=== PATIENT | female | born 1955 | race Caucasian/White ===

== ENCOUNTER 2017-06-16 13:01 | Inpatient (IN) | payer MEDICARE, MEDICAID ==
[2017-06-16 14:19] VITALS: BMI 38.0
[2017-06-16] MEDS ORDERED: Calcium Carbonate 500 MG ChewTAB PO PRN (19:20)
[2017-06-16] MEDS ORDERED: Ondansetron ODT 4 MG TAB PO PRN (19:20)
[2017-06-16] MEDS ORDERED: Bisacodyl 5 MG TAB PO PRN (19:20)
[2017-06-16] MEDS ORDERED: Milk Of Magnesia 30 ML UDCUP PO PRN (19:20)
[2017-06-16] MEDS ORDERED: Loperamide HCl 2 MG CAP PO PRN (19:20)
[2017-06-16] MEDS: Ascorbic Acid 500 mg Chewable Tablet PO SCH (19:53)
[2017-06-16] MEDS: Atenolol 25 MG TAB PO SCH (19:53)
[2017-06-16] MEDS: Escitalopram Oxalate 10 mg Tablet PO SCH (19:54)
[2017-06-16] MEDS: Atorvastatin Calcium 10 MG TAB PO SCH (19:54)
[2017-06-16] MEDS: Mirtazapine 30 MG TAB PO SCH (19:54)
[2017-06-16] MEDS: Multivitamin W/ Minerals 1 TAB PO SCH (19:55)
[2017-06-16] MEDS: Acetaminophen 325 MG TAB PO PRN (19:55)
[2017-06-16] MEDS: OLANZapine 5 MG TAB PO SCH (19:55)
[2017-06-16] MEDS ORDERED: ALPRAZolam 0.25 MG TAB PO SCH (20:00)
[2017-06-16] MEDS: VITAMIN B COMPLEX PO SCH (21:29)
[2017-06-16] MEDS: ALPRAZolam 0.25 MG TAB PO SCH (21:29)
[2017-06-16] MEDS: HYDROcodone/Acetaminophen 10/325 mg Tablet PO PRN (21:30)
[2017-06-16] MEDS ORDERED: Bisacodyl 10 MG SUPP PR PRN (23:22)
[2017-06-17] MEDS: Levothyroxine Sodium 88 MCG TAB PO SCH (05:25)
[2017-06-17 05:36] LABS: Band 2 % (5-11); Eosinophils 1 % (0-10); Hemoglobin 10.8 g/dL (12.0-16.0); Lymphocytes 35 % (21-51); MDiff Complete? YES; Mean Corpuscular HGB CONC 33.5 g/dL (32.0-36.0); Mean Corpuscular Hemoglobin 31.6 pg (27.0-31.0); Mean Corpuscular Volume 94.4 fl (81.0-99.0); Monocytes 16 % (0-10); Neutrophil 45 % (42-75); Platelet Count 175 thou/uL (130-400); RBC Distribution Width 12.1 % (11.5-14.5); Reactive Lymphocytes 1 % (0-10); White Blood Cell (WBC) Count 4.3 thou/uL (4.8-10.8)
[2017-06-17 05:42] LABS: Anion Gap 12 mmol/L (10-20); BUN (Urea Nitrogen) 11 mg/dL (9.8-20.1); Calc. Creatinine Clearance 110 mL/min (70-130); Calcium 8.4 mg/dL (7.8-10.44); Carbon Dioxide 29 mmol/L (23-31); Chloride 104 mmol/L (98-107); Estimated GFR-MDRD 73; Glucose 96 mg/dL (80-115); Potassium 3.8 mmol/L (3.5-5.1); Sodium 141 mmol/L (136-145)
[2017-06-17] MEDS ORDERED: ALPRAZolam 0.25 MG TAB ONE (07:24)
[2017-06-17] MEDS: ALPRAZolam 0.25 MG TAB PO SCH ×3 (07:27→20:08)
[2017-06-17] MEDS: Calcium Carbonate + Vit D 1 TAB PO SCH (08:11)
[2017-06-17] MEDS: OLANZapine 5 MG TAB PO SCH ×2 (08:12→20:09)
[2017-06-17] MEDS: HYDROcodone/Acetaminophen 10/325 mg Tablet PO PRN (08:53)
[2017-06-17] MEDS: Ascorbic Acid 500 mg Chewable Tablet PO SCH (20:09)
[2017-06-17] MEDS: Atorvastatin Calcium 10 MG TAB PO SCH (20:09)
[2017-06-17] MEDS: Atenolol 25 MG TAB PO SCH (20:09)
[2017-06-17] MEDS: Escitalopram Oxalate 10 mg Tablet PO SCH (20:10)
[2017-06-17] MEDS: Mirtazapine 30 MG TAB PO SCH (20:10)
[2017-06-17] MEDS: Multivitamin W/ Minerals 1 TAB PO SCH (20:10)
[2017-06-17] MEDS: VITAMIN B COMPLEX PO SCH (20:11)
[2017-06-17] MEDS: Acetaminophen 325 MG TAB PO PRN (20:16)
[2017-06-18] MEDS: Levothyroxine Sodium 88 MCG TAB PO SCH (05:33)
[2017-06-18] MEDS: ALPRAZolam 0.25 MG TAB PO SCH ×3 (07:29→20:26)
[2017-06-18] MEDS: Calcium Carbonate + Vit D 1 TAB PO SCH (08:16)
[2017-06-18] MEDS: Acetaminophen 325 MG TAB PO PRN ×2 (08:16→15:22)
[2017-06-18] MEDS: OLANZapine 5 MG TAB PO SCH ×2 (08:16→20:27)
--- NOTE | 2017-06-18 12:13 | PRG ---
DATE OF ADMISSION: 06/16/2017 DATE OF PROGRESS NOTE: 06/17/2017 HISTORY OF PRESENT ILLNESS: Ms. Rich is a very pleasant 62-year-old white female who was taken by Dr. Francis to surgery for total left knee arthroplasty. Postoperatively, she did very well and has b een transferred to [facility] for continued physical therapy and occupational therap y to increase her strength and stamina. SUBJECTIVE: The patient states she is doing well today. She was very pleased because she did walk quite a bit. She understands that there is no therapy this weekend, but she will do exercises and h ave the nurses work with her. OBJECTIVE: VITAL SIGNS: Reveal blood pressure this morning was 107/75, pulse 75 to 88, respirations 18, O2 sat uration 98%, T-max is 98.4. Weight this morning was 208 pounds. GENERAL: This is a well-developed, well-nourished, slightly obese white female in no apparent distr ess at this time. HEENT: Reveals normocephalic, nontraumatic cranium. Pupils are equally round and reactive. Extrao cular movements intact. Nose and throat are slightly dry. NECK: Supple, without masses, nodes or bruits. CHEST: Clear to auscultation. No rales, rhonchi or wheezes are heard. HEART: Reveals a regular rate and rhythm with a 1/6 systolic ejection murmur. ABDOMEN: Obese, soft, nontender, without organomegaly, normal bowel sounds are noted. No rebound o r guarding is noted. : Deferred. EXTREMITIES: Reveal no clubbing, cyanosis or edema. The patient's left knee continues to do well, not much swelling, not much ecchymosis or tenderness. ASSESSMENT: 1. Status post total left knee. 2. Hypothyroidism. 3. Hypertension. 4. Anxiety depressive disorder. 5. Gastroesophageal reflux. PLAN: 1. Continue physical therapy and occupational therapy. 2. Continue to monitor the patient's blood pressure closely. 3. Continue to monitor the patient for GERD. 4. Continue stress ulcer prophylaxis. 5. Continue decubitus precautions. 6. Continue deep venous thrombosis prophylaxis.
[2017-06-18] MEDS: Escitalopram Oxalate 10 mg Tablet PO SCH (20:26)
[2017-06-18] MEDS: Multivitamin W/ Minerals 1 TAB PO SCH (20:26)
[2017-06-18] MEDS: HYDROcodone/Acetaminophen 10/325 mg Tablet PO PRN (20:26)
[2017-06-18] MEDS: Mirtazapine 30 MG TAB PO SCH (20:27)
[2017-06-18] MEDS: VITAMIN B COMPLEX PO SCH (20:27)
[2017-06-18] MEDS: Atenolol 25 MG TAB PO SCH (20:27)
[2017-06-18] MEDS: Ascorbic Acid 500 mg Chewable Tablet PO SCH (20:27)
[2017-06-18] MEDS: Atorvastatin Calcium 10 MG TAB PO SCH (20:27)
--- NOTE | 2017-06-18 21:52 | PRG ---
DATE OF SERVICE: 06/18/2017 SUBJECTIVE: Ms. Rich is a 62-year-old very pleasant white female taken to the surgical suite by Bassem Francis for total left knee arthroplasty. Postoperatively, she did very well, but she has significa nt problems with weakness and pain. She was transferred here for physical therapy and occupational therapy to increase her strength and stamina. The patient states she is doing well. She even was up and walking a little bit with the nurse today . She states her pain is much better. Her swelling is much better. She has no sticking pains in it anymore and she is very excited about so far the outcome. OBJECTIVE: VITAL SIGNS: Reveal blood pressure this morning 123/67, pulse 67 to 87, respirations 18 to 20, O2 saturation 98%, T-max is 97.6. Weight is 208 pounds. Input and output is good. The patient had a bowel movement today. GENERAL: Reveals a well-developed, well-nourished, slightly obese white female who looks much young er than her stated age. HEENT: Reveals normocephalic, nontraumatic cranium. Pupils are equally round and reactive. Extrao cular movements intact. Nose and throat are slightly dry. NECK: Supple, without masses, nodes, or bruits. CHEST: Clear to auscultation. No rales, rhonchi, or wheezes are heard. CARDIOVASCULAR: Reveals a regular rate and rhythm with a 1/6 systolic ejection murmur. ABDOMEN: Obese, soft, nontender, without organomegaly, normal bowel sounds are noted. No rebound o r guarding is noted. GENITOURINARY: Deferred. EXTREMITIES: Reveal no clubbing, cyanosis, or edema. The patient's left knee continues to do very well. ASSESSMENT: 1. Status post total left knee. 2. Hypothyroidism. 3. Hypertension. 4. Anxiety and depressive disorder. 5. Gastroesophageal reflux. PLAN: 1. Continue to monitor the patient's blood pressure closely. 2. Monitor the patient for GERD. 3. Continue stress ulcer prophylaxis. 4. Continue decubitus precautions. 5. Continue deep venous thrombosis prophylaxis. 6. Continue physical therapy and occupational therapy.
[2017-06-19] MEDS: Levothyroxine Sodium 88 MCG TAB PO SCH (05:46)
[2017-06-19] MEDS: ALPRAZolam 0.25 MG TAB PO SCH ×3 (07:20→20:46)
[2017-06-19] MEDS: Calcium Carbonate + Vit D 1 TAB PO SCH (08:24)
[2017-06-19] MEDS: OLANZapine 5 MG TAB PO SCH ×2 (08:24→20:45)
[2017-06-19] MEDS: Acetaminophen 325 MG TAB PO PRN (08:24)
[2017-06-19] MEDS: VITAMIN B COMPLEX PO SCH (20:44)
[2017-06-19] MEDS: Escitalopram Oxalate 10 mg Tablet PO SCH (20:45)
[2017-06-19] MEDS: Atenolol 25 MG TAB PO SCH (20:45)
[2017-06-19] MEDS: Multivitamin W/ Minerals 1 TAB PO SCH (20:45)
[2017-06-19] MEDS: Mirtazapine 30 MG TAB PO SCH (20:46)
[2017-06-19] MEDS: Atorvastatin Calcium 10 MG TAB PO SCH (20:46)
[2017-06-19] MEDS: Ascorbic Acid 500 mg Chewable Tablet PO SCH (20:46)
[2017-06-19] MEDS: HYDROcodone/Acetaminophen 10/325 mg Tablet PO PRN (20:46)
[2017-06-19] MEDS ORDERED: B COMPLEX SL SCH (22:15)
--- NOTE | 2017-06-20 01:57 | PRG ---
DATE OF SERVICE: 06/19/2017 HISTORY OF PRESENT ILLNESS: Ms. Rich is a very pleasant 62-year-old white female that Dr. Kim took to the surgical suite, did a total left knee arthroplasty. Postoperatively, she was weak, but she needed some physical therapy. So, therefore, she was transferred to swing bed. She is actually doing very well today. She got up to walk with the nurse today couple of rounds. Her swelling is m uch better. Her pain is much less. PHYSICAL EXAMINATION: VITAL SIGNS: Reveals blood pressure 129/90, pulse 72-83, respirations 18, O2 sat 97-98%. T-max is 98.0, weight is 208 pounds. GENERAL: Reveals well-developed, well-nourished, slightly obese white female in no apparent distres s at this time. HEENT: Reveals normocephalic, nontraumatic cranium. Pupils equal, round, and reactive. Extraocula r movements are intact. Nose and throat are slightly dry. NECK: Supple without masses, nodes or bruits. CHEST: Clear to auscultation. No rales, rhonchi, wheezes or cough is heard. CARDIOVASCULAR: Reveals a regular rate and rhythm with 1/6 systolic ejection murmur. ABDOMEN: Obese, soft, nontender, without organomegaly. Normal bowel sounds are noted. No rebound or guarding is noted. GENITOURINARY: Deferred. EXTREMITIES: Reveal no clubbing, cyanosis, or edema. Patient has a little bruising about her left knee, but continues to do very well, is not very warm, red or inflamed. ASSESSMENT: 1. Status post left total knee. 2. Hypothyroidism. 3. Hypertension. 4. Anxiety depressive disorder. 5. Gastroesophageal reflux disease. 6. Generalized weakness. PLAN: 1. Monitor the patient's blood pressure closely. 2. Monitor the patient for GERD. 3. Continue stress ulcer prophylaxis. 4. Continue decubitus precautions. 5. Continue deep venous thrombosis prophylaxis. 6. Continue physical therapy and occupational therapy.
[2017-06-20] MEDS: Levothyroxine Sodium 88 MCG TAB PO SCH (07:36)
[2017-06-20] MEDS: ALPRAZolam 0.25 MG TAB PO SCH ×3 (07:38→19:44)
[2017-06-20] MEDS: OLANZapine 5 MG TAB PO SCH ×2 (09:12→19:46)
[2017-06-20] MEDS: Calcium Carbonate + Vit D 1 TAB PO SCH (09:12)
[2017-06-20] MEDS: HYDROcodone/Acetaminophen 10/325 mg Tablet PO PRN ×2 (09:12→17:26)
[2017-06-20] MEDS: Ascorbic Acid 500 mg Chewable Tablet PO SCH (19:44)
[2017-06-20] MEDS: Atorvastatin Calcium 10 MG TAB PO SCH (19:45)
[2017-06-20] MEDS: Atenolol 25 MG TAB PO SCH (19:45)
[2017-06-20] MEDS: Escitalopram Oxalate 10 mg Tablet PO SCH (19:45)
[2017-06-20] MEDS: Mirtazapine 30 MG TAB PO SCH (19:46)
[2017-06-20] MEDS: Multivitamin W/ Minerals 1 TAB PO SCH (19:46)
[2017-06-20] MEDS: B COMPLEX SL SCH (19:47)
--- NOTE | 2017-06-21 00:05 | PRG ---
DATE OF ADMISSION: 06/16/2017 DATE OF PROGRESS NOTE: 06/20/2017 HISTORY OF PRESENT ILLNESS: Ms. Rich is a very pleasant 62-year-old white female. Dr. Francis took to the surgical suite for total left knee arthroplasty. Postoperatively, she was weak and she was t ransferred to [facility] for continued physical therapy and occupational therapy. SUBJECTIVE: The patient was seen walking in the halls with physical therapy today. She is much imp roved, however, last Tuesday when I saw her just barely get up. She states her swelling is much less and her pain is much less. She is excited that she is doing so well. PHYSICAL EXAMINATION: VITAL SIGNS: Reveal blood pressure 124/71, pulse 83, respirations 18, O2 saturation 96% to 98% on r oom air, temperature max of 98.0. GENERAL: This is a well-developed, well-nourished, slightly obese white female in no apparent distr ess at this time. HEENT: Reveals normocephalic, nontraumatic cranium. Pupils are equally round and reactive. Extrao cular movements intact. Nose and throat are moist today. NECK: Supple, without masses, nodes or bruits. LUNGS: Chest is clear to auscultation. No rales, rhonchi or wheezes are heard. HEART: Reveals a regular rate and rhythm. She does have a 1/6 systolic ejection murmur. ABDOMEN: Obese, soft, nontender, without organomegaly. No rebound or guarding is noted. Normal tim wel sounds are heard in all 4 quadrants. : Deferred. EXTREMITIES: Reveal no clubbing or cyanosis. The patient has trace edema in her legs. She has holli y little bruising and is walking cautiously. IMPRESSION: 1. Status post total left knee replacement. 2. Hypothyroidism. 3. Hypertension. 4. Gastroesophageal reflux disease. 5. Anxiety depressive disorder. 6. Generalized weakness. PLAN: 1. Continue to follow the patient's blood pressure closely. 2. Monitor the patient for GERD. 3. Continue stress ulcer prophylaxis. 4. Continue decubitus precautions. 5. Continue DVT prophylaxis. 6. Continue physical therapy and occupational therapy.
[2017-06-21] MEDS: Levothyroxine Sodium 88 MCG TAB PO SCH (05:58)
[2017-06-21] MEDS: ALPRAZolam 0.25 MG TAB PO SCH ×2 (07:45→12:39)
[2017-06-21] MEDS: OLANZapine 5 MG TAB PO SCH ×2 (09:22→19:50)
[2017-06-21] MEDS: Calcium Carbonate + Vit D 1 TAB PO SCH (09:22)
[2017-06-21] MEDS: Atenolol 25 MG TAB PO SCH (19:49)
[2017-06-21] MEDS: Ascorbic Acid 500 mg Chewable Tablet PO SCH (19:49)
[2017-06-21] MEDS: Escitalopram Oxalate 10 mg Tablet PO SCH (19:49)
[2017-06-21] MEDS: Atorvastatin Calcium 10 MG TAB PO SCH (19:49)
[2017-06-21] MEDS: Mirtazapine 30 MG TAB PO SCH (19:49)
[2017-06-21] MEDS: Multivitamin W/ Minerals 1 TAB PO SCH (19:50)
[2017-06-21] MEDS: B COMPLEX SL SCH (19:51)
[2017-06-21] MEDS ORDERED: ALPRAZolam 0.25 MG TAB PO SCH (20:00)
[2017-06-22] MEDS: Levothyroxine Sodium 88 MCG TAB PO SCH (05:48)
--- NOTE | 2017-06-22 05:54 | PRG ---
DATE OF SERVICE: 06/21/2017 DATE OF ADMISSION: 06/16/2017 HISTORY OF PRESENT ILLNESS: Ms. Rich is a very pleasant 62-year-old white female from [place], [place]. The patient had a total left knee done by Dr. Francis. Postoperatively, she was weak and had a lot of pain and some swelling in that knee. She was transferred to [facility] for swing bed for physical therapy and occupational therapy and is actually doing excellent. SUBJECTIVE: The patient is up and around. She is walking in the halls. She has much less swelling . She has much less pain and she has proud that she is doing so well. PHYSICAL EXAMINATION: VITAL SIGNS: Reveal blood pressure 111/75, pulse 86-88, respirations 20, O2 sat 96%-97%, T-max 98. 3, weight 208 pounds. GENERAL: Reveals well-developed, well-nourished, slightly obese white female in no apparent distres s at this time. HEENT: Reveals normocephalic, nontraumatic cranium. Pupils are equally round and reactive. Extrao cular muscle movements intact. Nose and throat are dry today. NECK: Supple without masses, nodes, or bruits. LUNGS: Chest clear to auscultation. No rales, rhonchi, or wheezes are heard. No cough is noted. HEART: Reveals a regular rate and rhythm without murmurs, gallops, or rubs. The patient does have a 1/6 systolic ejection murmur. ABDOMEN: Obese, soft, nontender without organomegaly. Normal bowel sounds are noted. No rebound o r guarding is noted. : Deferred. EXTREMITIES: Reveal no clubbing or cyanosis. Patient has trace edema to her legs. Patient has carolyn ost bruising and much less pain. IMPRESSION: 1. Status post total left knee replacement. 2. Hypothyroidism. 3. Hypertension. 4. Gastroesophageal reflux disease. 5. Anxiety depressive disorder. 6. Generalized weakness. PLAN: 1. Monitor the patient's blood pressure closely. 2. Monitor the patient for GERD. 3. Continue stress ulcer prophylaxis. 4. Continue decubitus precautions. 5. Deep venous thrombosis prophylaxis. 6. Continue physical therapy and occupational therapy.
[2017-06-22] MEDS: ALPRAZolam 0.25 MG TAB PO SCH ×3 (07:26→19:32)
[2017-06-22] MEDS: Calcium Carbonate + Vit D 1 TAB PO SCH (08:07)
[2017-06-22] MEDS: OLANZapine 5 MG TAB PO SCH ×2 (08:07→19:34)
--- NOTE | 2017-06-22 18:18 | PRG ---
DATE OF SERVICE: 06/22/2017 Ms. Rich is a very pleasant 62-year-old white female from [place], [place]. She had a total left knee done by Dr. Francis. Postoperatively, she was transferred to [facility] for cristhian nued physical therapy, and occupational therapy. The patient has actually been doing very well. SUBJECTIVE: The patient states she is up and walking much better. She has much less swelling. She has much less pain and she is proud she is doing so well. PHYSICAL EXAMINATION: VITAL SIGNS: Reveals blood pressure this morning 133/95, pulse 88, respirations 18 to 20, O2 sat 95 -97% on room air, temperature max 98.3. PHYSICAL EXAMINATION: GENERAL: This is a well-developed, well-nourished, slightly obese white female in no apparent distr ess at this time. HEENT: Reveals normocephalic, nontraumatic cranium. Pupils are equally round and reactive. Extrao cular movements intact. Nose is slightly dry. NECK: Supple, without masses, nodes or bruits. LUNGS: Chest is clear to auscultation. No rales, rhonchi, wheezes or cough is heard. CARDIOVASCULAR: Reveals a regular rate and rhythm. The patient does have a systolic murmur graded at I/. ABDOMEN: Obese, soft, nontender, without organomegaly. Normal bowel sounds are noted. No rebound or guarding is noted. Bowel sounds are noted in all 4 quadrants. : Deferred. EXTREMITIES: Reveal no clubbing, cyanosis or edema. Patient has slight swelling in her left leg, r ight is doing well. The bruising is almost all gone. IMPRESSION: 1. Status post total left knee replacement. 2. Hypothyroidism. 3. Hypertension. 4. Gastroesophageal reflux disease. 5. Anxiety, depressive disorder. 6. Generalized weakness. PLAN: 1. Continue to monitor the patient's blood pressure closely. 2. Continue stress ulcer prophylaxis. 3. Continue decubitus precautions. 4. Continue physical therapy. 5. Continue occupational therapy. 6. Continue to monitor the patient for GERD.
[2017-06-22] MEDS: Atenolol 25 MG TAB PO SCH (19:33)
[2017-06-22] MEDS: Ascorbic Acid 500 mg Chewable Tablet PO SCH (19:33)
[2017-06-22] MEDS: Mirtazapine 30 MG TAB PO SCH (19:33)
[2017-06-22] MEDS: Escitalopram Oxalate 10 mg Tablet PO SCH (19:33)
[2017-06-22] MEDS: Atorvastatin Calcium 10 MG TAB PO SCH (19:33)
[2017-06-22] MEDS: B COMPLEX SL SCH (19:34)
[2017-06-22] MEDS: Multivitamin W/ Minerals 1 TAB PO SCH (19:34)
[2017-06-22] MEDS: Acetaminophen 325 MG TAB PO PRN (20:25)
[2017-06-23] MEDS: Levothyroxine Sodium 88 MCG TAB PO SCH (06:12)
[2017-06-23] MEDS: ALPRAZolam 0.25 MG TAB PO SCH ×3 (07:29→20:38)
[2017-06-23] MEDS: OLANZapine 5 MG TAB PO SCH ×2 (08:28→20:37)
[2017-06-23] MEDS: Calcium Carbonate + Vit D 1 TAB PO SCH (08:28)
[2017-06-23] MEDS: B COMPLEX SL SCH (20:37)
[2017-06-23] MEDS: Mirtazapine 30 MG TAB PO SCH (20:37)
[2017-06-23] MEDS: Atorvastatin Calcium 10 MG TAB PO SCH (20:38)
[2017-06-23] MEDS: Ascorbic Acid 500 mg Chewable Tablet PO SCH (20:38)
[2017-06-23] MEDS: Escitalopram Oxalate 10 mg Tablet PO SCH (20:38)
[2017-06-23] MEDS: Atenolol 25 MG TAB PO SCH (20:38)
[2017-06-23] MEDS: Multivitamin W/ Minerals 1 TAB PO SCH (20:38)
[2017-06-23] MEDS: Acetaminophen 325 MG TAB PO PRN (20:39)
[2017-06-24] MEDS: Levothyroxine Sodium 88 MCG TAB PO SCH (05:32)
--- NOTE | 2017-06-24 06:00 | PRG ---
DATE OF ADMISSION: 06/16/2017 DATE OF SERVICE: 06/23/2017 HISTORY OF PRESENT ILLNESS: Ms. Rich is a very pleasant 62-year-old white female. She is from [place], [place] and had a total left knee done by Dr. Francis. Postoperatively, she was transferred to [facility] for continued physical therapy and occupational therapy because of weakne ss. She is expected to increase her strength and her stamina. SUBJECTIVE: The patient is again very pleased today, she is walking much better. She is having muc h less pain. She presently walks quite a bit this morning and now has the ice pack on her knee to t he keep the swelling down. She has no complaints and states she is eating well. OBJECTIVE: VITAL SIGNS: Blood pressure 124/71, pulse 85 to 105, respirations 18, O2 saturation 95% to 98% on r oom air, temperature 98.5. GENERAL: This is a well-developed, well-nourished, very pleasant, slightly obese white female, in n o apparent distress at this time. HEENT: Reveals normocephalic, nontraumatic cranium. Pupils are equally round and reactive. Extrao cular movements intact. Nose and throat are slightly dry. NECK: Supple, without masses, nodes, or bruits. CHEST: Clear to auscultation. No rales, rhonchi, or wheezes are heard. CARDIOVASCULAR: Reveals a regular rate and rhythm without gallops or rubs. Patient does have a sys tolic 1/6 murmur. ABDOMEN: Obese, soft, nontender, without organomegaly. Normal bowel sounds are heard in all 4 quad rants. No rebound or guarding is noted. GENITOURINARY EXAM: Deferred. EXTREMITIES: Reveal no clubbing, cyanosis, or edema. The patient continues to do very well with th e left leg postoperatively. IMPRESSION: 1. Status post total left knee by Dr. Francis. 2. Hypertension. 3. Gastroesophageal reflux disease. 4. Hypothyroidism. 5. Anxiety depressive disorder. 6. Generalized weakness. PLAN: 1. Monitor the patient's blood pressure closely. 2. Continue decubitus precautions. 3. Stress ulcer prophylaxis. 4. Continue physical therapy. 5. Continue occupational therapy. 6. Monitor patient for GERD.
[2017-06-24] MEDS: ALPRAZolam 0.25 MG TAB PO SCH ×3 (07:42→20:41)
[2017-06-24] MEDS: Calcium Carbonate + Vit D 1 TAB PO SCH (08:28)
[2017-06-24] MEDS: OLANZapine 5 MG TAB PO SCH ×2 (08:28→20:41)
[2017-06-24] MEDS: Multivitamin W/ Minerals 1 TAB PO SCH (20:41)
[2017-06-24] MEDS: Ascorbic Acid 500 mg Chewable Tablet PO SCH (20:41)
[2017-06-24] MEDS: Atenolol 25 MG TAB PO SCH (20:41)
[2017-06-24] MEDS: Atorvastatin Calcium 10 MG TAB PO SCH (20:41)
[2017-06-24] MEDS: Mirtazapine 30 MG TAB PO SCH (20:41)
[2017-06-24] MEDS: Escitalopram Oxalate 10 mg Tablet PO SCH (20:42)
[2017-06-24] MEDS: B COMPLEX SL SCH (20:43)
[2017-06-24] MEDS: Acetaminophen 325 MG TAB PO PRN (23:35)
[2017-06-25] MEDS: Levothyroxine Sodium 88 MCG TAB PO SCH (05:45)
[2017-06-25 07:09] VITALS: BP 127/75; TEMP 97.9
[2017-06-25] MEDS: Calcium Carbonate + Vit D 1 TAB PO SCH (08:07)
[2017-06-25] MEDS: ALPRAZolam 0.25 MG TAB PO SCH ×2 (08:07→11:52)
[2017-06-25] MEDS: OLANZapine 5 MG TAB PO SCH (08:07)
--- NOTE | 2017-06-25 11:38 | DIS ---
DATE OF ADMISSION: 06/16/2017 DATE OF DISCHARGE: 06/25/2017 PRICIPAL DIAGNOSIS: Degenerative joint disease, status post total left knee arthroplasty. SECONDARY DIAGNOSES: 1. Degenerative joint disease. 2. Depression. 3. Hypothyroidism. 4. Bipolar disease. 5. Obesity. 6. Dyslipidemia. COMPLICATIONS: None. ADVERSE ACTIONS: None. PROCEDURES: None. CONSULTATIONS: Physical therapy. HOSPITAL COURSE: Patient was admitted by Dr. Matteo English on 06/16/2017 after undergoing left t otal knee arthroplasty. She was admitted to [place] for therapy. She has done well with therapy and has improved to the point that she has been cleared by therapy and nursing to be stable to go home. She states that she does not need any medications. She denies any chest pain or shortness of breat h. She has a walker at home. She is going to see Dr. Francis and then continue outpatient therapy in [place]. She is going to follow up with her primary care physician Dr. Stack. She was advised to call us with any questions or concerns. PHYSICAL EXAMINATION: VITAL SIGNS: On the day of discharge, she is afebrile, heart rate is 82, respirations 18, oxygen sa turation is 96%, and blood pressure is 127/75. HEENT: Normocephalic, atraumatic. Pupils are equally reactive to light and accommodation. NECK: No JVD, thyromegaly, cervical adenopathy or throat exudates, or carotid bruits CARDIOVASCULAR : S1 and S2, plus. RESPIRATORY: Normal vesicular breath sounds. ABDOMEN: Soft, obese, nontender. Bowel sounds heard in all quadrants. EXTREMITIES: Without cyanosis or clubbing. Trace edema, left leg and left knee incision is healthy . CENTRAL NERVOUS SYSTEM: Grossly nonfocal. DISCHARGE MEDICATIONS: Tylenol 650 p.o. q. 4 hours p.r.n., Xanax 0.25 mg t.i.d., Tenormin 25 mg at night, Lipitor 10 mg daily, Lexapro 20 mg daily, Levoxyl 88 mcg daily, Remeron 30 mg at night, Zypre xa 5 mg b.i.d., and multivitamins. ACTIVITY: As tolerated per orthopedic restrictions. FOLLOWUP: Outpatient followup with Dr. Francis and Dr. Stack in 3-5 days. DIET: Low cholesterol diet. As stated, she is to call us with any questions or concerns. Total time spent on this discharge 25 minutes.
== END 2017-06-25 14:10 | disposition home or self-care (01) | DRG 561 ==
LOC: NAV ACUTE 13:01
PROVIDERS: ADMIT Family Medicine; ATTEND Family Medicine
DX: Z47.1 Aftercare following joint replacement surgery (principal); I10 Essential (primary) hypertension; Z96.652 Presence of left artificial knee joint; M19.90 Unspecified osteoarthritis, unspecified site; F32.9 Major depressive disorder, single episode, unspecified; E03.9 Hypothyroidism, unspecified; E66.9 Obesity, unspecified; Z68.38 Body mass index [BMI] 38.0-38.9, adult; F31.9 Bipolar disorder, unspecified; E78.5 Hyperlipidemia, unspecified; F41.8 Other specified anxiety disorders; K21.9 Gastro-esophageal reflux disease without esophagitis
CPT/HCPCS: 36415; 80048; 85025